=== PATIENT | male | born 1955 | race African-American/Black ===

== ENCOUNTER 2018-09-24 12:33 | Inpatient (IN) | payer BC, OTHER ==
[~2018-09-24] VITALS: Ht 182.9 cm; Wt 155.7 kg
[2018-09-24] MEDS ORDERED: MORPHINE SULFATE 10 MG/ML CPJ IV ONE (14:45)
[2018-09-24] MEDS ORDERED: AMPICILLIN SOD/SULBACTAM NA 3 G in SODIUM CHLORIDE 0.9% 100 ML IV ONE (14:45)
[2018-09-24 14:52] LABS: HEMATOCRIT. 46.3 % (42.0-52.0); HEMOGLOBIN. 14.4 g/dL (14.0-18.0); MEAN CORPUSCULAR HEMOGLOBIN 22.8 pg (28.0-32.0); MEAN CORPUSCULAR VOLUME 73.2 fL (80.0-94.0); PLATELET 188 x1000/uL (130-400); RED BLOOD CELL COUNT 6.33 mill/uL (4.7-6.1); RED CELL DISTRIBUTION WIDTH 16.5 % (11.6-14.6)
[2018-09-24 14:53] LABS: CHLORIDE 103 mEq/L (98-107)
[2018-09-24] MEDS ORDERED: AMPICILLIN/SULBACTAM 3G in SODIUM CHLORIDE 0.9% 100ML IV NR (15:00)
[2018-09-24 15:21] LABS: PLATELET ESTIMATE NORMAL
[2018-09-24] MEDS ORDERED: CLONIDINE 0.2MG TABLET PO ONE (15:45)
[2018-09-24] MEDS ORDERED: ACETAMINOPHEN 325MG TABLET PO ONE (17:45)
[2018-09-24] MEDS ORDERED: MAGNESIUM/ALUMINUM HYDROXIDE/SIMETHICONE 30ML UDC PO PRN (19:45)
[2018-09-24] MEDS ORDERED: ONDANSETRON HCL 4MG/2ML INJ IV PRN (19:45)
[2018-09-24] MEDS ORDERED: DEXTROSE 50% WATER 50ML SYRINGE IV PRN ×2 (19:45)
[2018-09-24] MEDS ORDERED: CLONIDINE 0.1MG TABLET PO PRN (19:45)
[2018-09-24] MEDS ORDERED: MORPHINE SULFATE 2 MG/ML CPJ (NOT FOR IM USE) IV PRN (20:00)
[2018-09-24] MEDS ORDERED: HYDROCODONE/ACETAMINOPHEN 5/325MG TABLET PO PRN (20:10)
[2018-09-24 20:40] VITALS: BP 174/92
[2018-09-24] MEDS: INSULIN LISPRO 100 UNITS/ML SUBCUT SCH (21:00)
[2018-09-24] MEDS: BLOOD SUGAR DIAGNOSTIC STRIP TEST SCH (21:46)
[2018-09-24] MEDS: AMPICILLIN SOD/SULBACTAM NA 3 G in SODIUM CHLORIDE 0.9% 100 ML IV SCH (21:57)
[2018-09-24] MEDS: SODIUM CHLORIDE 0.9% 1,000 ML IV SCH (21:57)
[2018-09-25 00:33] VITALS: BP 131/77
[2018-09-25] MEDS: AMPICILLIN SOD/SULBACTAM NA 3 G in SODIUM CHLORIDE 0.9% 100 ML IV SCH ×2 (03:36→10:27)
[2018-09-25 04:00] VITALS: BP 152/76
[2018-09-25] MEDS: BLOOD SUGAR DIAGNOSTIC STRIP TEST SCH ×4 (06:46→21:20)
[2018-09-25] MEDS: INSULIN LISPRO 100 UNITS/ML SUBCUT SCH ×4 (06:46→21:00)
[2018-09-25 07:29] LABS: HEMATOCRIT. 41.5 % (42.0-52.0); HEMOGLOBIN. 12.9 g/dL (14.0-18.0); MEAN CORPUSCULAR HEMOGLOBIN 22.8 pg (28.0-32.0); MEAN CORPUSCULAR VOLUME 73.3 fL (80.0-94.0); MEAN PLATELET VOLUME 8.8 fl (7.4-10.4); PLATELET 145 x1000/uL (130-400); RED BLOOD CELL COUNT 5.67 mill/uL (4.7-6.1); RED CELL DISTRIBUTION WIDTH 16.5 % (11.6-14.6)
[2018-09-25 07:43] LABS: CHLORIDE 102 mEq/L (98-107)
[2018-09-25 08:14] LABS: LDL CHOLESTEROL 45 mg/dL (5-100)
[2018-09-25 08:16] LABS: HDL CHOLESTEROL 40 mg/dL (40-59)
[2018-09-25 09:12] VITALS: BP 152/61
[2018-09-25 11:23] LABS: PLATELET ESTIMATE NORMAL
[2018-09-25 11:29] LABS: CLARITY URINE CLEAR (CLEAR); COLOR URINE YELLOW (YELLOW); KETONES URINE NEGATIVE (NEGATIVE); LEUKOCYTE ESTERASE URINE NEGATIVE (NEGATIVE); NITRITE URINE NEGATIVE (NEGATIVE); OCCULT BLOOD URINE NEGATIVE (NEGATIVE); PH URINE 5.5 (4.5-8.0); PROTEIN URINE NEGATIVE (NEGATIVE); SPECIFIC GRAVITY URINE 1.025 (1.005-1.030)
[2018-09-25 12:09] VITALS: BP 143/87
[2018-09-25 14:21] VITALS: BP 138/82
[2018-09-25] MEDS: LOSARTAN POTASSIUM 50 MG TABLET PO SCH (14:33)
[2018-09-25] MEDS ORDERED: VANCOMYCIN 2,000 MG in DEXT 5% WATER 500 ML IV NR (15:00)
[2018-09-25] MEDS ORDERED: AMPICILLIN SOD/SULBACTAM NA 3 G in SODIUM CHLORIDE 0.9% 100 ML IV SCH (16:00)
[2018-09-25] MEDS: ACETAMINOPHEN 325MG TABLET PO PRN (16:41)
[2018-09-25] MEDS: METFORMIN HCL 500MG TABLET PO SCH (17:50)
[2018-09-25 20:00] VITALS: BP 136/73
[2018-09-25] MEDS: SODIUM CHLORIDE 0.9% 1,000 ML IV SCH (21:04)
[2018-09-26] VITALS: BP 147/87
[2018-09-26] MEDS: VANCOMYCIN 1250MG in DEXTROSE 5% WATER 250ML IV SCH ×2 (02:53→16:02)
[2018-09-26 04:00] VITALS: BP 145/75
[2018-09-26 06:37] LABS: HEMATOCRIT. 38.4 % (42.0-52.0); MEAN CORPUSCULAR HEMOGLOBIN 22.4 pg (28.0-32.0); MEAN CORPUSCULAR VOLUME 72.1 fL (80.0-94.0); MEAN PLATELET VOLUME 8.6 fl (7.4-10.4); PLATELET 129 x1000/uL (130-400); RED BLOOD CELL COUNT 5.33 mill/uL (4.7-6.1); RED CELL DISTRIBUTION WIDTH 16.1 % (11.6-14.6)
[2018-09-26 06:49] LABS: CHLORIDE 103 mEq/L (98-107)
[2018-09-26] MEDS: BLOOD SUGAR DIAGNOSTIC STRIP TEST SCH ×4 (07:20→20:07)
[2018-09-26] MEDS: METFORMIN HCL 500MG TABLET PO SCH ×2 (07:50→17:50)
[2018-09-26] MEDS: INSULIN LISPRO 100 UNITS/ML SUBCUT SCH ×4 (07:50→20:08)
[2018-09-26 08:00] VITALS: BP 142/79
[2018-09-26 08:44] VITALS: BP 142/79
[2018-09-26] MEDS: LOSARTAN POTASSIUM 50 MG TABLET PO SCH (09:13)
[2018-09-26 09:39] LABS: PLATELET ESTIMATE NORMAL
[2018-09-26] MEDS ORDERED: POTASSIUM CHLORIDE 20MEQ TABLET SR PO NR (09:45)
[2018-09-26 16:40] VITALS: BP 170/80
[2018-09-26 20:00] VITALS: BP 156/85
[2018-09-26] MEDS: SODIUM CHLORIDE 0.9% 1,000 ML IV SCH ×2 (20:07→22:18)
[2018-09-26] MEDS: ACETAMINOPHEN 325MG TABLET PO PRN (21:02)
[2018-09-27] VITALS: BP 124/60
[2018-09-27] MEDS: VANCOMYCIN 1250MG in DEXTROSE 5% WATER 250ML IV SCH ×3 (02:03→21:38)
[2018-09-27 04:00] VITALS: BP 122/72
[2018-09-27] MEDS: BLOOD SUGAR DIAGNOSTIC STRIP TEST SCH ×4 (06:45→21:00)
[2018-09-27 07:36] LABS: BASOPHILS % 0.2 % (0.0-2.0); EOSINOPHILS % 0.6 % (0.0-5.0); HEMATOCRIT. 38.5 % (42.0-52.0); HEMOGLOBIN. 11.9 g/dL (14.0-18.0); LYMPHOCYTES % 8.4 % (20.0-50.0); MEAN CORPUSCULAR HEMOGLOBIN 22.6 pg (28.0-32.0); MEAN PLATELET VOLUME 9.2 fl (7.4-10.4); MONOCYTES % 9.6 % (2.0-8.0); NEUTROPHILS % 81.2 % (40.0-76.0); PLATELET 132 x1000/uL (130-400); RED BLOOD CELL COUNT 5.28 mill/uL (4.7-6.1); RED CELL DISTRIBUTION WIDTH 16.4 % (11.6-14.6)
[2018-09-27 07:42] LABS: CHLORIDE 102 mEq/L (98-107)
[2018-09-27] MEDS: INSULIN LISPRO 100 UNITS/ML SUBCUT SCH ×4 (07:50→21:00)
[2018-09-27] MEDS: METFORMIN HCL 500MG TABLET PO SCH ×4 (07:50→17:50)
[2018-09-27 08:00] VITALS: BP 134/80
[2018-09-27] MEDS: LOSARTAN POTASSIUM 50 MG TABLET PO SCH (10:11)
[2018-09-27 12:00] VITALS: BP 133/81
[2018-09-27] MEDS: SODIUM CHLORIDE 0.9% 1,000 ML IV SCH ×2 (14:40→17:31)
[2018-09-27 16:00] VITALS: BP 140/83
[2018-09-27 20:00] VITALS: BP 158/94
[2018-09-28] VITALS: BP 153/79
[2018-09-28 04:00] VITALS: BP 147/88
[2018-09-28] MEDS: VANCOMYCIN 1250MG in DEXTROSE 5% WATER 250ML IV SCH ×3 (05:08→21:08)
[2018-09-28] MEDS: SODIUM CHLORIDE 0.9% 1,000 ML IV SCH ×2 (06:19→23:25)
[2018-09-28] MEDS: BLOOD SUGAR DIAGNOSTIC STRIP TEST SCH ×4 (06:19→21:09)
[2018-09-28 06:44] LABS: BASOPHILS % 0.4 % (0.0-2.0); EOSINOPHILS % 1.1 % (0.0-5.0); HEMATOCRIT. 38.6 % (42.0-52.0); HEMOGLOBIN. 12.2 g/dL (14.0-18.0); LYMPHOCYTES % 15.5 % (20.0-50.0); MEAN CORPUSCULAR HEMOGLOBIN 22.9 pg (28.0-32.0); MEAN CORPUSCULAR VOLUME 72.6 fL (80.0-94.0); MEAN PLATELET VOLUME 8.5 fl (7.4-10.4); MONOCYTES % 13.2 % (2.0-8.0); NEUTROPHILS % 69.8 % (40.0-76.0); PLATELET 162 x1000/uL (130-400); RED BLOOD CELL COUNT 5.32 mill/uL (4.7-6.1); RED CELL DISTRIBUTION WIDTH 16.1 % (11.6-14.6)
[2018-09-28 06:50] LABS: CHLORIDE 102 mEq/L (98-107)
[2018-09-28] MEDS: INSULIN LISPRO 100 UNITS/ML SUBCUT SCH ×4 (07:50→21:00)
[2018-09-28] MEDS: METFORMIN HCL 500MG TABLET PO SCH ×2 (07:50→16:30)
[2018-09-28 08:01] VITALS: BP 133/78
[2018-09-28] MEDS: LOSARTAN POTASSIUM 50 MG TABLET PO SCH (10:14)
[2018-09-28 11:34] VITALS: BP 139/70
[2018-09-28 15:33] VITALS: BP 147/78
[2018-09-28 20:08] VITALS: BP 153/82
[2018-09-29] VITALS: BP 160/82
[2018-09-29 04:00] VITALS: BP 156/80
[2018-09-29] MEDS: VANCOMYCIN 1250MG in DEXTROSE 5% WATER 250ML IV SCH ×2 (06:01→17:30)
[2018-09-29] MEDS: BLOOD SUGAR DIAGNOSTIC STRIP TEST SCH ×3 (06:36→21:00)
[2018-09-29] MEDS: INSULIN LISPRO 100 UNITS/ML SUBCUT SCH ×3 (07:50→21:00)
[2018-09-29] MEDS: METFORMIN HCL 500MG TABLET PO SCH ×2 (07:50→17:11)
[2018-09-29 08:00] VITALS: BP 116/64
[2018-09-29] MEDS: LOSARTAN POTASSIUM 50 MG TABLET PO SCH (08:52)
[2018-09-29 08:56] LABS: BASOPHILS % 0.6 % (0.0-2.0); EOSINOPHILS % 2.4 % (0.0-5.0); HEMATOCRIT. 37.6 % (42.0-52.0); HEMOGLOBIN. 11.7 g/dL (14.0-18.0); LYMPHOCYTES % 17.6 % (20.0-50.0); MEAN CORPUSCULAR HEMOGLOBIN 22.5 pg (28.0-32.0); MEAN CORPUSCULAR VOLUME 72.3 fL (80.0-94.0); MEAN PLATELET VOLUME 8.2 fl (7.4-10.4); NEUTROPHILS % 65.4 % (40.0-76.0); PLATELET 163 x1000/uL (130-400); RED BLOOD CELL COUNT 5.19 mill/uL (4.7-6.1)
[2018-09-29 09:21] LABS: CHLORIDE 102 mEq/L (98-107)
[2018-09-29 11:57] VITALS: BP 146/87
[2018-09-29 15:39] VITALS: BP 143/77
[2018-09-29] MEDS: SODIUM CHLORIDE 0.9% 1,000 ML IV SCH (16:40)
[2018-09-29] MEDS ORDERED: VANCOMYCIN 1 G PREMIX 200 ML IV SCH (18:00)
[2018-09-29 20:00] VITALS: BP 171/89
[2018-09-30] VITALS: BP 126/72
[2018-09-30] MEDS: VANCOMYCIN 1250MG in DEXTROSE 5% WATER 250ML IV SCH ×2 (03:02→14:25)
[2018-09-30 04:00] VITALS: BP 122/67
[2018-09-30] MEDS: BLOOD SUGAR DIAGNOSTIC STRIP TEST SCH ×4 (05:58→18:26)
[2018-09-30] MEDS: METFORMIN HCL 500MG TABLET PO SCH ×2 (05:59→18:31)
[2018-09-30] MEDS: INSULIN LISPRO 100 UNITS/ML SUBCUT SCH ×3 (05:59→17:40)
[2018-09-30 08:00] VITALS: BP 128/72
[2018-09-30] MEDS: LOSARTAN POTASSIUM 50 MG TABLET PO SCH (08:56)
[2018-09-30] MEDS: SODIUM CHLORIDE 0.9% 1,000 ML IV SCH (09:20)
[2018-09-30 12:00] VITALS: BP 127/51
[2018-09-30 16:32] VITALS: BP 131/68
[2018-09-30 16:40] VITALS: BP 120/72
[2018-09-30] MEDS ORDERED: VANCOMYCIN 1250MG in DEXTROSE 5% WATER 250ML IV SCH (22:00)
== END 2018-09-30 18:40 | disposition home or self-care (01) | DRG 872 ==
LOC: ER 12:48 → 6WST 16:26 → ENRESERV 19:48 → 8WST 09-29 17:44
PROVIDERS: ADMIT Family Medicine Adult Medicine; ATTEND Family Medicine Adult Medicine
DX: A41.9 Sepsis, unspecified organism (principal); L03.115 Cellulitis of right lower limb; Z68.42 Body mass index [BMI] 45.0-49.9, adult; E11.9 Type 2 diabetes mellitus without complications; E87.6 Hypokalemia; I10 Essential (primary) hypertension; E66.9 Obesity, unspecified; M16.11 Unilateral primary osteoarthritis, right hip; I87.8 Other specified disorders of veins
CPT/HCPCS: 36415; 71045; 71250; 72170; 73700; 74176; 80048; 80061; 80202; 82962; 83036; 83605; 83735; 84100; 84145; 84443; 93970; 93971; 96365; 96375; 99285; J0295; J2270; J3370; J7050; J7060